=== PATIENT | male | born 1975 | race Caucasian/White ===

== ENCOUNTER 2016-11-16 08:41 | Emergency (ER) | payer OTHER ==
[~2016-11-16] VITALS: Ht 188 cm; Wt 96.3 kg
[~2016-11-16 08:41] MED LIST: IBUP-1050 PO; NTRGSL/4 UT; TYLOTC500 PO; WARF10TA4 PO; WARF7.5T4 PO
[2016-11-16 08:46] VITALS: TEMP 37.1; Ht 188 cm; Wt 96.3 kg
[2016-11-16] MEDS ORDERED: PENICILLIN V POTASSIUM 250 MG TAB PO STA (09:03)
--- NOTE | 2016-11-16 09:05 | EMERGENCY ROOM VISIT NOTE ---
History Report prepared by Davina: Maxine Bryant Under the Supervision of: Dr. Ines Pastor M.D. First contact with patient: 08:50 Chief Complaint: FACIAL PAIN/INJURY Stated Complaint: RT SIDE OF FACE IS SWOLLEN/PAIN FROM SIDE TO HEAD History of Present Illness The patient is a 41 year old male who presents to the Emergency Room with complaints of worsening right sided falcial swelling beginning a few days prior to arrival. The patient states that he is experiencing pain to the right side of his face. He also notes a headache and has pressure to his head when he leans forward. The patient has a history of dental issues and has experienced these symptoms before from dental issues. He notes those typically begin with pain to the tooth or gum. He denies any pain to his teeth. The patient has an appointment scheduled with PCP this evening. The patient denies congestion. He does have seasonal allergies. 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 He denies congestion or dental pain. Review of Systems See HPI for pertinent positives & negatives. A total of 10 systems reviewed and were otherwise negative. Past Medical & Surgical Medical Problems: (1) Aortic valve disorder (2) Bicuspid aortic valve (3) Chest pain (4) Chronic dyspnea (5) H/O cardiac pacemaker (6) Hypercholesterolemia Surgical Problems: (1) S/P AVR (aortic valve replacement) Family History Cancer Diabetes mellitus Heart disease Hypertension Social History Smoking Status: Never Smoker Drug Use: none Marital Status: Housing Status: lives with family Occupation Status: employed Current/Historical Medications Scheduled Acetaminophen (Tylenol), 1,000 MG PO Q8HR PRN Ibuprofen (Advil), 800 MG PO PRN Nitroglycerin (Nitrostat), 0.4 MG UT PRN Penicillin V Potassium (Veetids), 500 MG PO QID Warfarin Sod (Jantoven), 7.5 MG PO 3XWEEK Warfarin Sod (Jantoven), 10 MG PO 4XWEEK Scheduled PRN Hydrocodone/Acetaminophen 5MG/325MG ([place] 5MG/325MG), 1 TABLET PO Q6 PRN for Pain Allergies Coded Allergies: No Known Allergies (Verified , 11/16/16) Physical Exam Vital Signs Date Time Temp Pulse Resp B/P (MAP) Pulse Ox O2 Delivery O2 Flow Rate FiO2 11/16/16 10:11 99 18 135/84 95 11/16/16 08:46 37.1 108 18 134/85 94 Room Air Physical Exam Vital signs reviewed. General: Well-appearing male, in no significant distress. HEENT: No scleral icterus, PERRLA, neck supple. Atraumatic. Swelling to right facial cheek over the infraorbital region and maxillary sinus. Poor dentition noted. 1 cm abscess noted to the buccal surface of the gum line to first molars. Minimal drainage. Cardiovascular: Regular rate and rhythm, no extra sounds. Pulmonary: Clear to auscultation bilaterally, normal work of breathing. Abdomen: Soft, nontender, nondistended, positive bowel sounds. Musculoskeletal: Atraumatic, no peripheral edema. Neurologic: Patient awake alert and oriented x 3, full strength in all 4 extremities. Cranial nerves 2 through 12 grossly intact. Skin: Warm, dry, no rash Medical Decision & Procedures Medications Administered Medications (Trade) Dose Ordered Sig/Jenny Route Start Time Stop Time Status Last Admin Dose Admin Penicillin V Potassium (Veetids Tab) 500 mg NOW STAT PO 11/16/16 09:03 11/16/16 09:05 DC 11/16/16 09:17 500 MG Procedure I ED Course 0859: Past medical records reviewed. The patient was evaluated in room B4. A complete history and physical examination was performed. 0903: Veetids Tab 500 mg PO. 0905: See procedure note for Incision and Drainage of Abscess. 0951: Upon reevaluation, the patient appeared to have improvement of his symptoms. I discussed findings with the patient. He verbalized agreement of the treatment plan. He was discharged home. Medical Decision The patient is a 41 year old male who presents to the ED with complaints of facial swelling. Differentials include dental abscess, fractured tooth, facial cellulitis, sinusitis. Medication Reconciliation: I attest that I have personally reviewed the patient' s current medication list. Blood Pressure Screening: Patient was found to have a slightly elevated blood pressure due to circumstances. I do not believe that the patient requires hypertension monitoring. This patient was evaluated and appeared to be in no significant distress. Patient was medicated with Pen-VK 500 mg. The abscess is visualized along the maxilla in the gumline. A scalpel was used to partially drain the abscess. Patient was given a prescription for Pen-VK 500 mg 4 times a day for 7 days. He was also given a short prescription for [place]. He will follow-up with the dentist as soon as possible. He will return to the ER for worsening of symptoms or any medical concerns. [place] Drug Monitoring [place] Search Results: patient reviewed within database, no issues identified Impression Primary Impression: Dental abscess Scribe Attestation The scribe's documentation has been prepared under my direction and personally reviewed by me in its entirety. I confirm that the note above accurately reflects all work, treatment, procedures, and medical decision making performed by me. Departure Information Dispostion Home / Self-Care Prescriptions Hydrocodone/Acetaminophen 5MG/325MG ([place] 5MG/325MG) Tab 1 TABLET PO Q6 Y for Pain, #20 TAB Prov: Ines Pastor M.D. 11/16/16 Penicillin V Potassium (Veetids) 500 Mg Tab 500 MG PO QID, #40 TAB Prov: Ines Pastor M.D. 11/16/16 Referrals Shelton Birmingham M.D. (PCP) Forms HOME CARE DOCUMENTATION FORM, IMPORTANT VISIT INFORMATION Patient Instructions My [facility] Additional Instructions Diagnosis: Dental abscess Pen VK 500 mg four times daily for 7 days. [place] 1 tab every 6 hours as needed for pain. Do not drive or take tylenol with this medication. Ibuprofen 600 mg every 6 hours as needed for pain with food. Follow up with a dentist GAURI, within the next few days. Try Dr Montelongo, [address], [address], [place]. [phone] Return to the ED for worsening of symptoms or any medical concerns.
[2016-11-16] MEDS ORDERED: PENI-82 PO (09:48)
[2016-11-16] MEDS ORDERED: HYDR-5688 PO (09:48)
[2016-11-16 10:11] VITALS: BP 135/84; PULSE 99; O2SAT 95
== END 2016-11-16 10:12 | disposition home or self-care (01) ==
LOC: C.EDB 08:42
DX: K04.7 Periapical abscess without sinus (principal); Q23.1 Congenital insufficiency of aortic valve; Z95.0 Presence of cardiac pacemaker; E78.00 Pure hypercholesterolemia, unspecified; Z95.2 Presence of prosthetic heart valve; Z80.9 Family history of malignant neoplasm, unspecified; Z83.3 Family history of diabetes mellitus; Z82.49 Family history of ischemic heart disease and other diseases of the circulatory system; Z79.01 Long term (current) use of anticoagulants; Z79.899 Other long term (current) drug therapy

== ENCOUNTER 2016-12-02 12:10 | Day surgery (SDC) | payer OTHER ==
[2016-11-08 10:17] VITALS: BMI 27.0
--- NOTE | 2016-11-08 10:47 | PAT Medication Instructions ---
Service Date Nov 08, 2016. Current Home Medication List Acetaminophen (Tylenol), 1,000 MG PO Q8HR PRN Ibuprofen (Advil), 800 MG PO PRN Nitroglycerin (Nitrostat), 0.4 MG UT PRN Warfarin Sod (Jantoven), 7.5 MG PO 3XWEEK Warfarin Sod (Jantoven), 10 MG PO 4XWEEK Medication Instructions For Your Scheduled Surgery - Check with surgeon for instructions: Ibuprofen (Advil), 800 MG PO PRN - Check surgeon/coumadin clinic for instructions: Warfarin Sod (Jantoven), 7.5 MG PO 3XWEEK Warfarin Sod (Jantoven), 10 MG PO 4XWEEK - Take the following medications the morning of surgery with a sip of water: Nitroglycerin (Nitrostat), 0.4 MG UT PRN (if needed) Acetaminophen (Tylenol), 1,000 MG PO Q8HR PRN (if needed) - Take the following medications as scheduled the night before surgery: Nitroglycerin (Nitrostat), 0.4 MG UT PRN (if needed) Acetaminophen (Tylenol), 1,000 MG PO Q8HR PRN (if needed) If you have any questions please call us at [phone] or [phone] or [phone]
[2016-11-08 11:27] LABS: BASO % 0.3 %; BASO ABS # 0.03 K/uL (0-0.2); COMPLETE YES; EOS % 2.7 %; HEMATOCRIT 47.6 % (42-52); IG% 0.3 %; LYMPH % 24.3 %; LYMPH ABS # 2.19 K/uL (1.2-3.4); MEAN CELL VOLUME 83.8 fL (80-100); MEAN CORPUSCULAR HEMOGLOBIN 30.3 pg (25-34); MEAN CORPUSCULAR HGB CONC 36.1 g/dl (32-36); MEAN PLATELET VOLUME 10.7 fL (7.4-10.4); MONO % 8.9 %; NEUT % 63.5 %; PLATELET COUNT 292 K/uL (130-400); RED BLOOD COUNT 5.68 M/uL (4.7-6.1); WHITE BLOOD COUNT 9.02 K/uL (4.8-10.8)
[2016-11-08 11:38] LABS: URINE APPEARANCE CLEAR (CLEAR); URINE BILIRUBIN NEG (NEG); URINE COLOR YELLOW; URINE NITRITE NEG (NEG); URINE PH 6.5 (4.5-7.5); URINE SPECIFIC GRAVITY 1.022 (1.000-1.030); UROBILINOGEN NEG (NEG)
--- NOTE | 2016-11-08 11:44 | DIAGNOSTIC IMAGING REPORT ---
CHEST PREADMISSION(PA/LAT) CLINICAL HISTORY: 41 years-old Male presenting with preadmission chest x-ray. TECHNIQUE: PA and lateral views of the chest were obtained. COMPARISON: 02/08/2013. FINDINGS: Left-sided pacer with leads to the right atrium and right ventricular apex. Prosthetic aortic valve and mediastinal surgical clips noted. Evidence of breakage of one of the upper sternotomy wires, which may have been present on prior in retrospect. Heart and mediastinal silhouette normal. Lungs and pleural spaces clear. Osseous structures and upper abdomen normal. IMPRESSION: 1. No acute cardiopulmonary disease. Electronically signed by: Shelton Dunn 11/08/2016 11:43 AM Dictated Date/Time: 11/08/2016 11:41 AM
[2016-11-08 11:49] LABS: MANUAL MICROSCOPIC REQUIRED? NO; REVIEW REQ? NO
[2016-11-08 12:43] LABS: BUN/CREATININE RATIO 7.1 (10-20); CALCIUM 9.4 mg/dl (8.5-10.1); CREATININE 0.86 mg/dl (0.60-1.40); POTASSIUM 3.9 mmol/L (3.5-5.1)
--- NOTE | 2016-11-29 23:04 | HISTORY & PHYSICAL EXAMINATION ---
DATE OF ADMISSION: 12/02/2016 CHIEF COMPLAINT: Right hip pain. HISTORY OF PRESENT ILLNESS: The patient is a 41-year-old male, who presents to the office with right hip pain. He states that the symptoms have been chronic and nontraumatic. He states that the symptoms have been getting progressively worse over time. He describes the pain as moderate to severe. He has been treated with cortisone injections to the right intraarticular hip for some time. These injections have stopped working for him. He would like to proceed with a left hip scope with a possible labral repair. PAST MEDICAL HISTORY: Significant for aortic valve disease, irregular heartbeat. PAST SURGICAL HISTORY: Aortic valve replacement with mechanical valve, pacemaker, tonsillectomy, appendectomy, adenoidectomy. SOCIAL HISTORY: He denies alcohol use. He smokes a cigar occasionally. He denies IV or illegal drug use. He lives in a 1-story house. He currently works at [employer]. FAMILY HISTORY: His grandfather had a heart attack. REVIEW OF SYSTEMS: He denies headaches, fevers, chills, double vision, blurry vision, sore throat, cough, chest pain, nausea, vomiting, diarrhea, constipation, numbness or tingling, tiring, urinary difficulties, thoughts to harm himself or harm others or depression. He is positive for joint pain and joint stiffness of the left hip. ALLERGIES: No known drug allergies. MEDICATIONS: Warfarin, Tuesday, Tuesday, Tuesday, Tuesday, 10 mg, Tuesday, , Tuesday, 7.5 mg, Nitro when needed, aspirin 81 mg when needed. OBJECTIVE: GENERAL APPEARANCE: The patient is a 41-year-old male, who is sitting, in no acute distress. He is well dressed, well nourished. He is awake, alert and oriented x3. VITAL SIGNS: He is 6 feet 2 inches tall, 213 pounds, blood pressure 142/80. HEENT: Normocephalic, atraumatic. Extraocular movements are intact. PERRLA. Mucosa was moist. No septal deviation. NECK: Supple with no lymphadenopathy, no JVD, no thyromegaly. HEART: Regular rate and rhythm. Mechanical valve is noted. LUNGS: Clear to auscultation with no wheezing or rhonchi. ABDOMEN: Soft, nontender, nondistended. Normal bowel sounds. No hepatosplenomegaly. EXTREMITIES: Paying particular attention to the left hip, he has difficulty with active hip flexion, abduction and external rotation. He has decreased strength in all planes of movement. NEUROLOGIC: Cranial nerves II-XII were intact. Pulses were compared bilaterally and were equal. IMAGING: CT arthrogram of the hip demonstrated posterior labral fraying. IMPRESSION: Left hip pain with possible labral tear. PLAN: The patient is scheduled for a left hip scope and possible labral repair. The patient has failed intraarticular injections. He was unable to obtain an MRI due to a pacemaker as well as the prosthetic valve. A CT arthrogram was obtained, of the hip, which demonstrates some posterior labral fraying. He has failed the conservative measures of cortisone injections and physical therapy. He would like to proceed with an arthroscopy. He will be scheduled for a left hip scope and possible labral repair. Risks and benefits were discussed that included, but not limited to, infection, DVT, pain, stiffness, need for revision surgeries, failure to relieve all symptoms, re-tear, damage to blood vessels, damage to nerves, and risks of anesthesia were all discussed with the patient and he wishes to proceed. All questions were answered to his satisfaction. He will be sent home with self-care. 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 [place]
[~2016-12-02] VITALS: Ht 188 cm; Wt 96.9 kg
[~2016-12-02 12:10] MED LIST changes: +ATROPINE SULFATE 0.1 MG/ML 5ML SYR IV PRN; +BUPIVACAINE 0.5 % 5 MG/1 ML PF 10ML VIAL ONE; +DEXAMETHASONE SOD INJ 4 MG/ML VIAL ONE; +EpHEDrine SULFATE INJ 50 MG/ML AMP IV PRN; +FENTANYL CITRATE INJ 50 MCG/1 ML 2 ML VIAL ONE; +HYDR-5688 PO; +LACTATED RINGER'S 1000ML 1,000 ML IV SCH; +LACTATED RINGER'S 1000ML 500 ML IV ONE; +LIDOCAINE HCL 2% 2 ML VIAL (20MG/ML) ONE; +MIDAZOLAM HCL 1 MG/ML 2ML VIAL ONE; +ONDANSETRON INJ 2 MG/ML 2 ML VIAL IV PRN; +ONDANSETRON INJ 2 MG/ML 2 ML VIAL ONE; +PENI-82 PO; +PROPOFOL IV EMULSION 10 MG/ML 20 ML VIAL IV ONE
--- NOTE | 2016-12-02 12:28 | History & Physical Bridge Note ---
H&P Re-Evaluation Bridge Note: I have examined the patient, reviewed the History & Physical and in the interval since the performance of the History & Physical I have noted the following changes of clinical significance: No changes noted
[2016-12-02] MEDS ORDERED: lovenox (12:31)
[2016-12-02 12:32] VITALS: BP 130/87; PULSE 78; TEMP 37; O2SAT 95; Ht 188 cm; Wt 96.9 kg
[2016-12-02 13:04] LABS: PARTIAL THROMBOPLASTIN RATIO 1.1; PROTHROMBIN TIME (PATIENT) 11.2 SECONDS (9.0-12.0)
--- NOTE | 2016-12-02 13:25 | History & Physical Bridge Note ---
H&P Re-Evaluation Bridge Note: I have examined the patient, reviewed the History & Physical and in the interval since the performance of the History & Physical I have noted the following changes of clinical significance: The patient has left hip pain, NOT right hip pain as stated in the Chief complaint and HPI of the history and physical.
[2016-12-02] MEDS ORDERED: NURSING VERBAL MED ORDER ONE (13:30)
[2016-12-02] MEDS ORDERED: CEFAZOLIN 2000 MG/60 ML D5W IV ONE (13:45)
[2016-12-02] MEDS ORDERED: LIDOCAINE/EPINEPHRINE 1% 20 ML VIAL ONE (14:05)
--- NOTE | 2016-12-02 14:05 | History & Physical Bridge Note ---
H&P Re-Evaluation Bridge Note: I have examined the patient, reviewed the History & Physical and in the interval since the performance of the History & Physical I have noted the following changes of clinical significance: The chief complaint is LEFT hip pain. The plan will be LEFT hip arthrocopy with possible labral repair
[2016-12-02] MEDS ORDERED: EpINEphrine HCL INJ 1 MG/ML 5ML SYRINGE ONE (14:06)
[2016-12-02] MEDS ORDERED: BUPIVACAINE 0.5 % 5 MG/1 ML MPF 30ML VIAL ONE (14:06)
[2016-12-02] MEDS ORDERED: KETAMINE HCL INJ 50 MG/ML 10 ML VIAL ONE (14:56)
[2016-12-02] MEDS ORDERED: FENTANYL CITRATE INJ 50 MCG/1 ML 2 ML VIAL ONE (15:14)
[2016-12-02] MEDS ORDERED: PROPOFOL IV EMULSION 10 MG/ML 20 ML VIAL IV ONE (15:40)
[2016-12-02] MEDS ORDERED: D5W AND 1/2NSS + 20MEQ KCL 1,000 ML IV SCH (16:11)
--- NOTE | 2016-12-02 16:11 | DIAGNOSTIC IMAGING REPORT ---
INTRAOPERATIVE LEFT HIP SINGLE VIEW CLINICAL HISTORY: LEFT HIP ARTHROPLASTY, POSSIBLE LABRAL REPAIR COMPARISON STUDY: None FLUOROSCOPY TIME: 23 seconds. NUMBER OF FLUOROSCOPIC IMAGES: 1 FINDINGS: A single intraoperative fluoroscopic spot images provided for interpretation. This reveals an arthroscope projected over the superior aspect of the left femoral head. IMPRESSION: Intraoperative fluoroscopic spot image of the left hip. Electronically signed by: Abram Lamb M.D. 12/02/2016 4:10 PM Dictated Date/Time: 12/02/2016 4:08 PM
[2016-12-02] MEDS ORDERED: ACETAMINOPHEN 325 MG TAB PO PRN (16:15)
[2016-12-02] MEDS ORDERED: OXYCODONE/ACETAMINOPHEN 5-325 TAB PO PRN ×2 (16:15)
[2016-12-02] MEDS ORDERED: ONDANSETRON INJ 2 MG/ML 2 ML VIAL IV PRN (16:15)
[2016-12-02] MEDS ORDERED: LVNIS30 SQ (16:29)
[2016-12-02] MEDS ORDERED: OXYC-57 PO (16:29)
[2016-12-02] MEDS: FENTANYL CITRATE INJ 50 MCG/1 ML 2 ML VIAL IV PRN ×2 (16:30→16:35)
--- NOTE | 2016-12-02 16:36 | Anesthesiology Progress Note ---
Anesthesia Post Op Note Date & Time Dec 02, 2016 at 16:36 Vital Signs Pain Intensity: 6.0 Vital Signs Past 12 Hours Date Time Temp Pulse Resp B/P (MAP) Pulse Ox O2 Delivery O2 Flow Rate FiO2 12/02/16 16:28 85 15 12/02/16 16:28 85 15 99 12/02/16 16:25 133/87 12/02/16 16:23 100 17 12/02/16 16:23 102 17 98 12/02/16 16:20 137/85 12/02/16 16:18 82 12 97 12/02/16 16:18 82 12 12/02/16 16:15 123/80 12/02/16 16:13 37.0 83 12 123/80 96 Mask 10 12/02/16 16:13 80 12 12/02/16 16:13 79 12 123/80 96 12/02/16 12:32 37 78 20 130/87 (101) 95 Room Air Notes Mental Status: alert / awake / arousable, participated in evaluation Pt Amnestic to Procedure: Yes Nausea / Vomiting: adequately controlled Pain: adequately controlled Airway Patency, RR, SpO2: stable & adequate BP & HR: stable & adequate Hydration State: stable & adequate Anesthetic Complications: no major complications apparent
--- NOTE | 2016-12-02 16:40 | Discharge Instructions ---
Discharge Instructions Date of Service Dec 02, 2016. Admission Reason for Admission: Pain In Left Hip Discharge Discharge Diagnosis / Problem: Left Hip arthroscopy debridement, microfracture of acetabulum Discharge Goals Goal(s): Decrease discomfort, Improve function Activity Recommendations Activity Limitations: per Instructions/Follow-up section . Instructions / Follow-Up Instructions / Follow-Up HIP ARTHROSCOPY DISCHARGE INSTRUCTIONS Patient to is to be Non-Weightbearing of the left lower extremity for 6 weeks. Use crutches to ambulate with no weight on the operative leg. He is allowed to remove the dressing two days after the operation. He can then apply dry dressings daily. DVT prophylaxis will be Lovenox 100mg Daily for 3 days. You will continue your warfarin as prescribed as well. Follow up with your day treatment clinician/art therapist and repeat your INR as scheduled. If you have any questions about transitioning from Lovenox to Warfarin please call your Infrastructure Architect, Dr. Paz. Pain medication will be provided for you. You can get this prescription filled. You can also take Tylenol as needed for pain. Keep a close look at the incisions. If there is increased redness, drainage, you begin to run a temperature greater than 101.5 or your pain worsens, please [facility] at [phone] Make a follow up appointment with Dr. Guthrie or his PA 10-14 Days after surgery for suture removal. Current Hospital Diet Patient's current hospital diet: Regular Diet Discharge Diet Recommended Diet: Regular Diet Procedures Procedures Performed: Left Hip Arthroscopy, Debridement Of labral, Microfracture of Acetabulum. Pending Studies Studies pending at discharge: no Medical Emergencies . Who to Call and When: Medical Emergencies: If at any time you feel your situation is an emergency, please call 911 immediately. . Non-Emergent Contact Non-Emergency issues call your: Surgeon Call Non-Emergent contact if: temperature is above 101.5, your pain is worsening, wound has increased drainage, wound has increased redness . "Provider Documentation" section prepared by Deon Karimi. . VTE Core Measure Inpt VTE Proph given/why not?: Enoxaparin (Lovenox)SQ, Warfarin (Coumadin) [place] Drug Monitoring [place] Search Results: patient reviewed within database, no issues identified
--- NOTE | 2016-12-02 17:03 | [facility] Operative Report ---
Operative Report Operative Date Dec 02, 2016. Pre-Operative Diagnosis Left hip pain with possible labral tear Post-Operative Diagnosis Left hip labral tear plus chondral lesion acetabulum Procedure(s) Performed Left Hip Arthroscopy, Debridement Of labral, Microfracture of Acetabulum. Surgeon Dr. Shelton Guthrie Editor In Chief Surgeon(s) Jourdan Karimi PA-C Estimated Blood Loss 2 ml Findings Above Specimens none per surgeon Drains none Anesthesia Gen. Complication(s) None Disposition Recovery Room / PACU Indications 41-year-old male with long-standing pain in the left hip. He is failed conservative measures including intra-articular injection anti-inflammatories and physical therapy. We are unable to obtain an MRI secondary to pacemaker placement but his exam and CT arthrogram concerning for labral tear. He wishes to proceed with left hip arthroscopy. Description of Procedure The patient has failed conservative measures including cortisone injection, physical therapy, and anti-inflammatory medication. After failing conservative measures, the patient wished to proceed with arthroscopy. The risks, benefits, and alternatives of surgery including, but not limited to, infection, DVT, pain , stiffness, need for revision surgery, failure to relieve all symptoms, damage to blood vessels, damage to nerves, and risk of anesthesia were discussed with the patient and they wished to proceed. The patient was identified. Laterality was confirmed and marked. The patient received a preoperative antibiotic. They were transferred to the operating room placed in the supine position and induced into general endotracheal anesthesia per the anesthesia staff. The patient was then safely transferred to the [place] and Neph hip arthroscopy traction system. The feet were well- padded with boots. A well-padded perineal post was placed. We placed some mild counter traction to the contralateral limb. Then under fluoroscopic guidance we ensure that we are able to achieve appropriate distraction of the femoral acetabular joint of the operative hip. The traction was then released. The limb was then prepped and draped in the usual standard manner with ChloraPrep. Once the hip was prepped and draped and placed it back on traction. Then utilizing fluoroscopy guidance, I made a anterior lateral portal through a stab incision. Incision sites were anesthetized with 2% lidocaine with epinephrine. Then under fluoroscopic guidance as well as direct visualization I made a more direct anterior portal taking care to only incise through the skin and then dissected bluntly deep. I then switched viewing portals to ensure that the anterior labral portal was not through the labrum. The cartilage of the femoral head [was normal]. The cartilage of the acetabulum had a region anteriorly laterally with the cartilage was unstable and delaminating off of the bone. The ligamentum teres [was normal]. The acetabular labrum [demonstrated a anterior superior tear that was not displaceable off of the acetabulum upon probing]. The unstable fragments were debrided using a combination of straight and curved jamie however the labrum itself was still stable and not requiring a repair. I utilized a [place] blade to perform a capsulotomy connecting the anterior and anterior lateral portals. I used a TurboVac ablator to achieve hemostasis. I used a combination of meniscus biter as well as ring curet to debride the unstable cartilage. The underlying bone had some minor cystic changes and was not normal. Bone. This was debrided with the curette to establish a good bleeding response. I then used a 90 microfracture pick to establish a good bleeding response. A spinal needle was placed into the hip and then 20 cc of Marcaine was placed after incision closure. All instrumentation was then removed from the hip. The portal sites were closed with nylon in the region. A sterile dressing was applied. All needle and sponge counts were correct at the end of the procedure. The patient was transferred to the PACU in stable condition without apparent complication. He will be on crutches for 6 weeks given his microfracture. I attest to the content of the Intraoperative Record and any orders documented therein. Any exceptions are noted below.
[2016-12-02 17:05] VITALS: BP 125/78; PULSE 93; TEMP 36.5; O2SAT 91
[2016-12-02 18:05] VITALS: BP 118/79; PULSE 96; TEMP 36.6; O2SAT 96
[2016-12-02 18:50] VITALS: BP 122/78; PULSE 90; TEMP 36.8; O2SAT 97
== END 2016-12-02 19:03 | disposition home or self-care (01) ==
LOC: C.ACU 12:10
PROVIDERS: ATTEND Orthopaedic Surgery
DX: S73.102A Unspecified sprain of left hip, initial encounter (principal); X58.XXXA Exposure to other specified factors, initial encounter; F17.290 Nicotine dependence, other tobacco product, uncomplicated; Z95.2 Presence of prosthetic heart valve; Z95.0 Presence of cardiac pacemaker; Z90.49 Acquired absence of other specified parts of digestive tract; Z79.01 Long term (current) use of anticoagulants; Z79.82 Long term (current) use of aspirin; Z82.49 Family history of ischemic heart disease and other diseases of the circulatory system

== ENCOUNTER 2017-07-11 23:25 | Emergency (ER) | payer OTHER ==
[~2017-07-11] VITALS: Ht 188 cm; Wt 94.1 kg
[~2017-07-11 23:25] MED LIST changes: -ATROPINE SULFATE 0.1 MG/ML 5ML SYR IV PRN; -BUPIVACAINE 0.5 % 5 MG/1 ML PF 10ML VIAL ONE; -DEXAMETHASONE SOD INJ 4 MG/ML VIAL ONE; -EpHEDrine SULFATE INJ 50 MG/ML AMP IV PRN; -FENTANYL CITRATE INJ 50 MCG/1 ML 2 ML VIAL ONE; -HYDR-5688 PO; -IBUP-1050 PO; -LACTATED RINGER'S 1000ML 1,000 ML IV SCH; -LACTATED RINGER'S 1000ML 500 ML IV ONE; -LIDOCAINE HCL 2% 2 ML VIAL (20MG/ML) ONE; +LVNIS30 SQ; -MIDAZOLAM HCL 1 MG/ML 2ML VIAL ONE; -ONDANSETRON INJ 2 MG/ML 2 ML VIAL IV PRN; -ONDANSETRON INJ 2 MG/ML 2 ML VIAL ONE; -PENI-82 PO; -PROPOFOL IV EMULSION 10 MG/ML 20 ML VIAL IV ONE
[2017-07-11 23:29] VITALS: TEMP 36.3; Ht 188 cm; Wt 94.1 kg
[2017-07-11] MEDS ORDERED: ACETAMINOPHEN 500 MG TAB PO STA (23:43)
--- NOTE | 2017-07-11 23:44 | EMERGENCY ROOM VISIT NOTE ---
History Report prepared by Davina: [place] Under the Supervision of: Dr. Ariadne Haddad D.O. First contact with patient: 23:33 Chief Complaint: ELBOW PAIN/INJURY Stated Complaint: RIGHT ELBOW SMASHED IT AGAINST WALL History of Present Illness The patient is a 41 year old male who presents to the Emergency Room with complaints of sudden right elbow pain occurring 15 minutes prior to arrival. He rates his pain at a 7/10. The patient states that he was playing around and accidentally smashed his right elbow into a wall. He states that his right arm is now stiff and that he is having tingling in his fingers. The patient reports that he did not take anything for the pain. He denies having shoulder pain. The patient states that he is on Warfarin for an aortic valve replacement and that he has a pacemaker. He reports that his last INR was checked a month ago and that it was fine. Source of History: patient Onset: 15 minutes prior to arrival Position: elbow (right) Symptom Intensity: rated at a 7/10 Timing: other (sudden ) Note: denies: shoulder pain Review of Systems See HPI for pertinent positives & negatives. A total of 10 systems reviewed and were otherwise negative. Past Medical & Surgical Medical Problems: (1) Aortic valve disorder (2) Bicuspid aortic valve (3) Chest pain (4) Chronic dyspnea (5) H/O cardiac pacemaker (6) Hypercholesterolemia (7) Pacemaker Surgical Problems: (1) S/P AVR (aortic valve replacement) Family History Cancer Diabetes mellitus Heart disease Hypertension Social History Smoking Status: Never Smoker Drug Use: none Marital Status: Housing Status: lives with family Occupation Status: employed Current/Historical Medications Scheduled Warfarin Sod (Jantoven), 7.5 MG PO 3XWEEK Warfarin Sod (Jantoven), 10 MG PO 4XWEEK Scheduled PRN Acetaminophen (Tylenol), 1,000 MG PO Q8 PRN for Pain or Fever Nitroglycerin (Nitrostat), 0.4 MG UT UD PRN for Chest Pain Allergies Coded Allergies: No Known Allergies (Verified , 07/12/17) Physical Exam Vital Signs Date Time Temp Pulse Resp B/P (MAP) Pulse Ox O2 Delivery O2 Flow Rate FiO2 07/12/17 01:20 80 20 120/77 94 07/11/17 23:29 36.3 87 18 137/86 98 Room Air Physical Exam Right upper extremity: Patient has some erythema to the lateral aspect of the right elbow. There is pain with palpation in that area. Patient has limited range of motion secondary to pain. There is no obvious joint effusion. normal radial pulses and normal distal sensation. Medical Decision & Procedures ER Provider Diagnostic Interpretation: Radiology results as stated below per my review. ELBOW MIN 3 VIEWS No obvious fracture. No significant joint effusion. No sail sign. Medications Administered Medications (Trade) Dose Ordered Sig/Jenny Route Start Time Stop Time Status Last Admin Dose Admin Acetaminophen (Tylenol Tab) 1,000 mg NOW STAT PO 07/11/17 23:43 07/11/17 23:45 DC 07/11/17 23:48 1,000 MG Procedure Medications: Acetaminophen 1,000 mg PO ED Course 2334: Past medical records reviewed. The patient was evaluated in room B6. A complete history and physical exam was performed. 2343: Ordered Acetaminophen 1,000 mg PO. The patient went for plain x-ray of the right elbow. No fractures were identified. 0055: Upon reevaluation, the patient is resting. I discussed findings and results with him. He verbalized agreement of the treatment plan. He was discharged home. Medical Decision The patient is a 41 year old male who presents to the ED with elbow pain. Differential diagnosis includes fracture, contusion, and sprain. The patient struck his right elbow on a wall. Since that time, he has had pain in the elbow and decreased range of motion. X-rays were performed and were negative for fracture. After I reviewed the results of the x-ray with the patient, he seemed to have full range of motion without difficulty. Medication Reconcilliation Current Medication List: was personally reviewed by me Blood Pressure Screening Patient's blood pressure: Normal blood pressure Impression Primary Impression: Elbow contusion Scribe Attestation The scribe's documentation has been prepared under my direction and personally reviewed by me in its entirety. I confirm that the note above accurately reflects all work, treatment, procedures, and medical decision making performed by me. Departure Information Dispostion Home / Self-Care Referrals Shelton Birmingham M.D. (PCP) Forms HOME CARE DOCUMENTATION FORM, IMPORTANT VISIT INFORMATION Patient Instructions Contusion Bone [facility], [facility] Additional Instructions Rest. Apply ice to the elbow. Use tylenol for pain. Problem Qualifiers Primary Impression: Elbow contusion Encounter type: initial encounter Laterality: right Qualified Codes: S50.01XA - Contusion of right elbow, initial encounter
[2017-07-12 01:20] VITALS: BP 120/77; PULSE 80; O2SAT 94
--- NOTE | 2017-07-12 06:33 | DIAGNOSTIC IMAGING REPORT ---
R ELBOW MIN 3 VIEWS ROUTINE HISTORY: 41 years-old Male eval for right elbow pain acute right elbow pain status post trauma COMPARISON: None available TECHNIQUE: 3 views of the right elbow FINDINGS: There is no acute fracture, dislocation or significant degenerative changes identified. No large joint effusion or opaque foreign body. IMPRESSION: No acute bony abnormality. The above report was generated using voice recognition software. It may contain grammatical, syntax or spelling errors. Electronically signed by: Remberto Dumont M.D. 07/12/2017 6:32 AM Dictated Date/Time: 07/12/2017 6:31 AM
== END 2017-07-12 01:22 | disposition home or self-care (01) ==
LOC: C.EDB 23:26
DX: S50.01XA Contusion of right elbow, initial encounter (principal); W22.01XA Walked into wall, initial encounter; R06.00 Dyspnea, unspecified; Z79.01 Long term (current) use of anticoagulants; Z95.0 Presence of cardiac pacemaker; Z95.2 Presence of prosthetic heart valve; Z86.39 Personal history of other endocrine, nutritional and metabolic disease; Z86.79 Personal history of other diseases of the circulatory system; Z83.3 Family history of diabetes mellitus; Z82.49 Family history of ischemic heart disease and other diseases of the circulatory system

== ENCOUNTER 2023-07-09 15:53 | Observation (INO) ==
[2023-07-09 16:19] LABS: Basophils # (auto) 0.05 K/uL (0.00-0.20); Basophils % (auto) 0.5 %; Eosinophils # (auto) 0.39 K/uL (0.00-0.50); Hematocrit (blood only) 47.3 % (42.0-52.0); Hemoglobin 16.3 g/dl (14.0-18.0); Immature Granulocytes # (auto) 0.03 K/uL (0.01-0.20); Immature Granulocytes % (auto) 0.3 %; Lymphocytes # (auto) 2.73 K/uL (1.20-3.40); Lymphocytes % (auto) 27.7 %; Mean Corpuscular Hemoglobin 29.1 pg (25.0-34.0); Mean Corpuscular Hgb Conc 34.5 g/dL (32.0-36.0); Mean Corpuscular Volume 84.5 fL (80.0-100.0); Monocytes # (auto) 0.79 K/uL (0.11-0.59); Neutrophils # (auto) 5.87 K/uL (1.40-6.50); Neutrophils % (auto) 59.5 %; Platelet Count 310 K/uL (130-400); RDW Coefficient of Variation 13.6 % (11.5-14.5); RDW Standard Deviation 42.4 fL (36.4-46.3); White Blood Count 9.86 K/ul (4.8-10.8)
[2023-07-09 16:37] LABS: Albumin Globulin Ratio 1.7 (0.9-2); Albumin Level 4.7 gm/dl (3.4-5.0); BUN Creatinine Ratio 11.8 (10-20); Bilirubin,Total 0.5 mg/dl (0.2-1.0); Calcium 9.2 mg/dl (8.6-10.3); Creatinine Clr Calc Pharmacy 133.2 ml/min; Est GFR (African American) 118.6 ml/min; Est GFR (Non-African American) 102.3 ml/min; Globulin 2.7 gm/dl (2.5-4.0); Potassium 3.6 mmol/L (3.5-5.1); Total Protein 7.4 gm/dl (6.0-8.3)
[2023-07-09 16:44] LABS: Troponin I High Sensitivity 6.5 pg/ml (0-20)
[2023-07-09] MEDS: ASPIRIN CHEW 324 MG PO STA (16:46)
[2023-07-09] MEDS: NITROGLYCERIN SL 0.4 MG/TAB TAB SL STA ×2 (16:46→18:33)
[2023-07-09] MEDS: SODIUM CHLORIDE 0.9% 1,000 ML IV ONE (16:47)
[2023-07-09 16:48] LABS: Partial Thromboplastin Ratio 1.3; Partial Thromboplastin Time 38 Seconds (21-31); Prothrombin Time 21.3 Seconds (9.0-12.0)
--- NOTE | 2023-07-09 17:20 | XRay Report ---
XR chest 1V not portable CLINICAL HISTORY: Chest pain, nonspecific TECHNIQUE: Single frontal radiograph of the chest was obtained. Comparison: Comparison is made to chest radiograph 01/30/2019 FINDINGS: Median sternotomy wires are unchanged. Implanted pacemaker is seen. The cardiomediastinal silhouette is normal. The lungs are clear. No evidence of pleural effusion or pneumothorax. IMPRESSION: No acute chest disease. ACT 112: Negative or not required by law. Electronically signed by: Fer Atkinson M.D. 07/09/2023 5:19 PM
[2023-07-09] MEDS: FAMOTIDINE 20MG IV PUSH 20 MG/5 ML SYR IV STA (19:47)
[2023-07-09] MEDS: ALUMINUM/MAGNESIUM SUSP 30 ML UDC PO STA (19:47)
[2023-07-09] MEDS ORDERED: ACETAMINOPHEN 325 MG TAB PO PRN (20:22)
--- NOTE | 2023-07-09 20:22 | History & Physical Report ---
Date of Service July 09, 2023 Assessment & Plan (1) Chest pain: Plan: Admit to telemetry Patient presenting from home with reports of left-sided chest pain In the ED, patient received 1 sublingual nitroglycerin with minimal improvement in the pain and EKG without acute ST changes, HS troponin negative x 2 Will trial GI cocktail and Famotidine Trend trop, resting echo Cardio consult, patient known to [facility] Cardiology (2) S/P AVR (aortic valve replacement): Plan: On Coumadin, INR 2.0 Continue Coumadin, monitor INR daily (3) H/O cardiac pacemaker: Plan: No acute issues S/p generator exchange 2022 DVT PROPHYLAXIS On Coumadin with therapeutic INR Patient seen collaboration with Dr. Burns. I spent a total of 75 minutes coordinating, documenting, and providing care for this patient excluding time spent in the performance of separately billed services. This included personally reviewing all current laboratories and imaging studies, medication reconciliation, outpatient chart review, and discussion with specialists. History of Present Illness Chief Complaint: Chest pain Primary Care Provider: Shelton Birmingham MD 47-year-old male with PMH mechanical aortic valve replacement anticoagulated on Coumadin, history of complete heart block s/p pacemaker, anxiety, and other problems listed below who presents to the ED for evaluation of chest pain. History is obtained from the patient and review of outpatient PCP and cardiology records. Patient reports that around 11:00, while he was at work, he developed a left-sided chest pressure. Patient reports he was not exerting himself at the time. Pain has been fairly constant since that time. No specific causative or alleviating factors. Patient denies associated diaphoresis, shortness of breath, nausea, lightheadedness. Reports feeling fatigued today. No other recent illnesses, fevers, chills. He denies abdominal pain, vomiting, diarrhea. No urinary symptoms. In the ED, patient received 1 sublingual nitroglycerin with some improvement in the pain however is currently rating his pain #8/10. EKG is without acute ST changes and initial HS troponin is negative. Allergies Allergy/AdvReac Type Severity Reaction Status Date / Time No Known Allergies Allergy Verified 07/09/23 17:50 Home Medications Medication Instructions Recorded Confirmed Type escitalopram oxalate 20 mg tablet 20 mg PO HS 07/09/23 07/09/23 History warfarin 5 mg tablet See Rx Instructions .Route .COMPLEX 07/09/23 07/09/23 History Past Med/Surg History Medical History Mobitz type 2 second degree AV block Anticoagulant long-term use Aortic valve disease s/p AVR (2005) Temporomandibular joint disorder + clicking, no locking Hip pain H/O cardiac pacemaker Implanted 2012, Generator change-out 01/13/23. Surgical History History of hip surgery Left bone/cartilage repair History of appendectomy History of tonsillectomy S/P AVR (aortic valve replacement) 2005 Pacemaker 2012 Family History Grandfather Myocardial infarction Father Diabetes Grandmother (Paternal) Diabetes Social History Smoking Status: Never smoker Second Hand Exposure: Yes (PARENTS SMOKED); Hx Alcohol Use: No Hx Substance Use: No Preferred Language: Turkmen Communication Ability: Effective Recreation Worker Required: No Beliefs That Will Affect Care: None Current Living Situation: Spouse and Family Current Living Situation Comment: SPOUSE, 2 KIDS current occupational status: employed 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 Other Information That Helps Us Care for You: No Feels Safe at Home: Yes Safety Concerns: Feels Safe At This Time Assistive Devices: Glasses Physical Exam Constitutional: WD/WN, vitals as above no acute distress Eyes: PERRL, conjunctivae normal, anicteric sclerae ENMT: external ear and nose normal, oropharynx normal Respiratory: normal respiratory effort, lungs clear to auscultation Cardiovascular: Rate/Rhythm: regular rate and regular rhythm Vessels: normal peripheral pulses Extremities: no edema Gastrointestinal (Abdomen): normal bowel sounds, soft, nontender, no hepatosplenomegaly Musculoskeletal: no cyanosis or clubbing, extremities motor strength 5/5 Skin: no rashes, warm and dry Neurologic: PERRL, EOMI, accommodation nl, no face palsy, no dysarthria Psychiatric: A+Ox3, euthymic affect Results & Data Results & Data Vital Signs (Past 12 Hours) Vital Signs Temp Pulse Pulse Resp BP BP Pulse Ox 07/09/23 19:40 65 17 114/77 95 07/09/23 19:33 65 18 111/75 95 07/09/23 16:50 72 07/09/23 16:43 70 18 07/09/23 16:43 71 18 129/79 96 07/09/23 16:43 96 07/09/23 15:58 36.2 C L 77 20 158/92 H 96 O2 Del Method O2 Flow Rate 07/09/23 19:40 Room Air 07/09/23 19:33 Room Air 07/09/23 16:50 07/09/23 16:43 0 07/09/23 16:43 Room Air 07/09/23 16:43 Room Air 0 07/09/23 15:58 Room Air Laboratory Results Short CBC 07/09/23 Range/Units 16:05 WBC 9.86 (4.8-10.8) K/ul Hgb 16.3 (14.0-18.0) g/dl Hct 47.3 (42.0-52.0) % Plt Count 310 (130-400) K/uL BMP 07/09/23 16:05 Sodium 138 Potassium 3.6 Chloride 105 Carbon Dioxide 26 BUN 10 Creatinine 0.85 Glucose 95 Calcium 9.2 Liver Function 07/09/23 Range/Units 16:05 Total Bilirubin 0.5 (0.2-1.0) mg/dl AST 19 (13-39) U/L ALT 18 (7-52) U/L Alkaline Phosphatase 57 (34-104) U/L Albumin 4.7 (3.4-5.0) gm/dl Diagnostic Findings Chest X-Ray 07/09/23 16:01 XR chest 1V not portable CLINICAL HISTORY: Chest pain, nonspecific TECHNIQUE: Single frontal radiograph of the chest was obtained. Comparison: Comparison is made to chest radiograph 01/30/2019 FINDINGS: Median sternotomy wires are unchanged. Implanted pacemaker is seen. The cardiomediastinal silhouette is normal. The lungs are clear. No evidence of pleural effusion or pneumothorax. IMPRESSION: No acute chest disease. ACT 112: Negative or not required by law. Electronically signed by: Fer Atkinson M.D. 07/09/2023 5:19 PM Supervising Physician Co-Signing Physician Notes I have seen and examined the patient and have discussed the case with the provider above. I have reviewed the advanced practitioner's documentation, and I agree with, and take responsibility for that plan of care. Patient is a 47-year-old man presenting with chest discomfort described as a pressure and left anterior chest . He has a significant cardiac history including aortic valve replacement with mechanical valve currently anticoagulated on Coumadin with a therapeutic INR, history of complete heart block status post pacemaker. He has an EKG this evening that reflects sinus rhythm with no ST changes that indicate acute ischemia and troponin x 2 is negative. Pain is not improved with 2 doses of nitroglycerin and full dose aspirin. No clear history of heartburn but patient does drink 2 Mountain Dew's daily with coffee. Added Maalox and Pepcid to see if this improved his discomfort. Agree with trending cardiac enzymes overnight and consulting cardiology in the morning. Patient does report intermittent lightheadedness which she states he has not discussed with cardiology and was encouraged to do so given his significant cardiac history noted above. Patient denies any syncopal episodes. Workup is otherwise unrevealing. PE considered but felt less likely given therapeutic INR in setting of consistent warfarin use. Continue monitoring patient overnight with likely plan for discharge tomorrow unless additional investigation warranted per cardiology. DO Grant
[2023-07-09] MEDS: ESCITALOPRAM OXALATE 20 MG TAB PO SCH (22:09)
[2023-07-09] MEDS: WARFARIN SOD 7.5 MG TAB PO SCH (22:09)
--- NOTE | 2023-07-09 22:10 | Emergency Department Note ---
History of Present Illness General Chief Complaint: Chest Pain Stated Complaint: CHEST PRESSURE Time Seen by Provider: 07/09/23 16:30 History of Present Illness Provider Complaint: chest pain Time: 11:00 Duration: constant Onset: during rest Pain Location: substernal and left chest Pain Radiation: none Severity: moderate Maximum Pain Intensity: 8 Current Pain Intensity: 8 Quality: + heaviness (Pressure) Relieved By: + nothing Exacerbated By: + nothing Context: no recent illness, no recent surgery, no recent immobilization, no recent travel, no trauma/injury, no new medications or no history of DVT/PE Associated symptoms: no nausea, no vomiting, no diaphoresis, no dyspnea, no syncope, no palpitations, no fever, no cough or no leg swelling Home Medications Medication Instructions Recorded Confirmed Type escitalopram oxalate 20 mg tablet 20 mg PO HS 07/09/23 07/09/23 History warfarin 5 mg tablet See Rx Instructions .Route .COMPLEX 07/09/23 07/09/23 History Allergies Allergy/AdvReac Type Severity Reaction Status Date / Time No Known Allergies Allergy Verified 07/09/23 17:50 Past Med/Surg History Medical History Mobitz type 2 second degree AV block Anticoagulant long-term use Aortic valve disease s/p AVR (2005) Temporomandibular joint disorder + clicking, no locking Hip pain H/O cardiac pacemaker Implanted 2012, Generator change-out 01/13/23. Surgical History History of hip surgery Left bone/cartilage repair History of appendectomy History of tonsillectomy S/P AVR (aortic valve replacement) 2005 Pacemaker 2012 Family History Grandfather Myocardial infarction Father Diabetes Grandmother (Paternal) Diabetes Social History Smoking Status: Never smoker Second Hand Exposure: Yes (PARENTS SMOKED); Hx Alcohol Use: No Hx Substance Use: No Preferred Language: Norwegian Communication Ability: Effective Water Service Dispatcher Required: No Beliefs That Will Affect Care: None Current Living Situation: Spouse and Family Current Living Situation Comment: SPOUSE, 2 KIDS current occupational status: employed 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 [employer] Other Information That Helps Us Care for You: No Feels Safe at Home: Yes Safety Concerns: Feels Safe At This Time Assistive Devices: Glasses Physical Exam Vital Signs Vital Signs - 24 hr 07/09/23 15:58 07/09/23 16:43 07/09/23 16:43 Temperature 36.2 C L Temperature Source Temporal Artery Scan Pulse Rate 77 Pulse Rate [Apical] 71 Respiratory Rate 20 18 Respiratory Effort / Characteristics Non-Labored Spontaneous Respiratory Depth Normal Blood Pressure 158/92 H Blood Pressure [Left Arm] 129/79 Blood Pressure Mean 114 Blood Pressure Mean [Left Arm] 95 Pulse Oximetry 96 96 96 Oxygen Delivery Method Room Air Room Air Room Air Oxygen Flow Rate 0 Sepsis Recent Fever Within 48 Hours No Sepsis New/Unexplained Change in Mental Status N/A Sepsis Action Taken by Nursing No Action Required 07/09/23 16:43 07/09/23 16:50 Temperature Temperature Source Pulse Rate 70 72 Pulse Rate [Apical] Respiratory Rate 18 Respiratory Effort / Characteristics Respiratory Depth Blood Pressure Blood Pressure [Left Arm] Blood Pressure Mean Blood Pressure Mean [Left Arm] Pulse Oximetry Oxygen Delivery Method Oxygen Flow Rate 0 Sepsis Recent Fever Within 48 Hours Sepsis New/Unexplained Change in Mental Status Sepsis Action Taken by Nursing Physical Exam GENERAL: oriented to person, place, and time. appears well-developed and well- nourished. HENT: Exam performed. - Head: Normocephalic and atraumatic. EYES: Conjunctivae and EOM are normal. Right eye exhibits no discharge. Left eye exhibits no discharge. No scleral icterus. NECK: Normal range of motion. Neck supple. No JVD present. CV: Normal rate, regular rhythm, normal heart sounds and intact distal pulses. There is no peripheral edema. Palpable radial pulses bue. PULM/CHEST: Effort normal and breath sounds normal. No respiratory distress. No stridor. no wheezes. no rales. ABD: The abdomen is soft. There is no tenderness. NEURO: Motor and sensation grossly intact. SKIN: Skin is warm and dry. He is not diaphoretic. PSYCH: normal mood and affect. Behavior is normal. Judgment and thought content normal. Course Course 163: The patient was evaluated in room C6. A complete history and physical exam was performed Cardiac monitoring: An order was placed for continuous cardiac monitoring. The monitor shows a rate of 70 with sinus rhythm interpreted by me 1740: Vital signs stable. Labs and imaging within normal limits. Patient reports his chest pain has resolved status post 1 sublingual nitroglycerin. Patient will be admitted to the [facility] hospitalist team for chest pain rule out ACS. Administered Medications Discontinued Medications Al Hydrox/Mg Hydrox/Simethicone (Aluminum/Magnesium Susp 30 Ml Udc) 30 ml PO NOW STA Stop: 07/09/23 19:38 Last Admin: 07/09/23 19:47 Dose: 30 ml Documented By: HASMUKH Aspirin (Aspirin Chew 324 Mg) 324 mg PO NOW STA Stop: 07/09/23 16:43 Last Admin: 07/09/23 16:46 Dose: 324 mg Documented By: GIANNA Sodium Chloride (Nss) 1,000 mls @ 999 mls/hr IV .Q1H1M ONE Stop: 07/09/23 17:42 Last Infusion: 07/09/23 18:30 Dose: Infused Documented By: Admin: 07/09/23 16:47 Dose: 999 mls/hr Documented By: GIANNA Famotidine (Pepcid 20mg Iv Push) 20 mg in 5 mls @ 2.5 mls/min IV NOW STA Stop: 07/09/23 19:38 Last Admin: 07/09/23 19:47 Dose: 2.5 mls/min Documented By: HASMUKH Nitroglycerin (Nitroglycerin Sl 0.4 Mg/Tab Tab) 0.4 mg SL NOW STA Stop: 07/09/23 16:43 Last Admin: 07/09/23 16:46 Dose: 0.4 mg Documented By: GIANNA Nitroglycerin (Nitroglycerin Sl 0.4 Mg/Tab Tab) 0.4 mg SL NOW STA Stop: 07/09/23 18:23 Last Admin: 07/09/23 18:33 Dose: 0.4 mg Documented By: GIANNA Medical Decision Making Laboratory Data Attestation: I reviewed the patient's lab results. 07/09/23 16:05 07/09/23 16:05 Labs: Lab Results 07/09/23 Range/Units 16:05 WBC 9.86 (4.8-10.8) K/ul RBC 5.60 (4.70-6.10) M/uL Hgb 16.3 (14.0-18.0) g/dl Hct 47.3 (42.0-52.0) % MCV 84.5 (80.0-100.0) fL MCH 29.1 (25.0-34.0) pg MCHC 34.5 (32.0-36.0) g/dL RDW Std Deviation 42.4 (36.4-46.3) fL RDW Coeff of Jarred 13.6 (11.5-14.5) % Plt Count 310 (130-400) K/uL MPV 10.0 (9.4-12.4) fL Immature Gran % (Auto) 0.3 % Neut % (Auto) 59.5 % Lymph % (Auto) 27.7 % [place] % (Auto) 8.0 % Eos % (Auto) 4.0 % Baso % (Auto) 0.5 % Neut # (Auto) 5.87 (1.40-6.50) K/uL Lymph # (Auto) 2.73 (1.20-3.40) K/uL [place] # (Auto) 0.79 H (0.11-0.59) K/uL Eos # (Auto) 0.39 (0.00-0.50) K/uL Baso # (Auto) 0.05 (0.00-0.20) K/uL Immature Gran # (Auto) 0.03 (0.01-0.20) K/uL PT 21.3 H (9.0-12.0) Seconds INR 2.0 H (0.9-1.1) APTT 38 H (21-31) Seconds PTT Ratio 1.3 Sodium 138 (136-145) mmol/L Potassium 3.6 (3.5-5.1) mmol/L Chloride 105 (98-107) mmol/L Carbon Dioxide 26 (21-32) mmol/L Anion Gap 7 (3-11) BUN 10 (6-23) mg/dl Creatinine 0.85 (0.6-1.4) mg/dl Est Cr Clr Drug Dosing 133.2 ml/min Est GFR ( Amer) 118.6 ml/min Est GFR (Non-Af Amer) 102.3 ml/min BUN/Creatinine Ratio 11.8 (10-20) Glucose 95 (70-99(Fasting)) mg/dl Calcium 9.2 (8.6-10.3) mg/dl Total Bilirubin 0.5 (0.2-1.0) mg/dl AST 19 (13-39) U/L ALT 18 (7-52) U/L Alkaline Phosphatase 57 (34-104) U/L Troponin I High Sens 6.5 (0-20) pg/ml Total Protein 7.4 (6.0-8.3) gm/dl Albumin 4.7 (3.4-5.0) gm/dl Globulin 2.7 (2.5-4.0) gm/dl Albumin/Globulin Ratio 1.7 (0.9-2) Imaging Data Chest x-ray: Attestation: I personally reviewed and interpreted this imaging study as follows: My impression: Chest x-ray negative. Airway clear. No pneumothorax. No consolidation. No cardiomegaly or cephalization.. No free air under the diaphragm. No fractures of the skeletal structures. Radiologist's impression: Chest X-Ray 07/09/23 16:01 XR chest 1V not portable CLINICAL HISTORY: Chest pain, nonspecific TECHNIQUE: Single frontal radiograph of the chest was obtained. Comparison: Comparison is made to chest radiograph 01/30/2019 FINDINGS: Median sternotomy wires are unchanged. Implanted pacemaker is seen. The cardiomediastinal silhouette is normal. The lungs are clear. No evidence of pleural effusion or pneumothorax. IMPRESSION: No acute chest disease. ACT 112: Negative or not required by law. Electronically signed by: Fer Atkinson M.D. 07/09/2023 5:19 PM ECG Data Attestation: I personally reviewed and interpreted this ECG as follows: Indication: chest pain Rate (beats per minute): 75 Rhythm: normal sinus Findings: no ST depression, no ST elevation or no prolonged QT MDM Narrative 1630: The patient was evaluated in room C6. A complete history and physical exam was performed Cardiac monitoring: An order was placed for continuous cardiac monitoring. The monitor shows a rate of 70 with sinus rhythm interpreted by me 1740: Vital signs stable. Labs and imaging within normal limits. Patient reports his chest pain has resolved status post 1 sublingual nitroglycerin. Patient will be admitted to the [facility] Hospitalist team for chest pain rule out ACS. Impression & Plan Chest pain Discharge Plan Visit Data Chief Complaint: Chest Pain Stated Complaint: CHEST PRESSURE ED Provider: Reji June Discharge Problem: Chest pain Patient Disposition: Admitted As Inpatient Discharge Instructions Interventions: ED Discharge Assessment Last Done: 07/09/23 19:40 Discharge Problem: Chest pain Qualifiers: Chest pain type: unspecified Qualified Code(s): R07.9 - Chest pain, unspecified
[2023-07-10] MEDS: NITROGLYCERIN SL 0.4 MG/TAB TAB SL PRN (06:27)
[2023-07-10 06:35] LABS: Hematocrit (blood only) 43.6 % (42.0-52.0); Hemoglobin 15.4 g/dl (14.0-18.0); Mean Corpuscular Hemoglobin 29.4 pg (25.0-34.0); Mean Corpuscular Hgb Conc 35.3 g/dL (32.0-36.0); Mean Corpuscular Volume 83.4 fL (80.0-100.0); Mean Platelet Volume 10.1 fL (9.4-12.4); Platelet Count 258 K/uL (130-400); RDW Coefficient of Variation 13.6 % (11.5-14.5); RDW Standard Deviation 41.2 fL (36.4-46.3); Red Blood Count 5.23 M/uL (4.70-6.10); White Blood Count 7.84 K/ul (4.8-10.8)
[2023-07-10 06:57] LABS: BUN Creatinine Ratio 13.6 (10-20); Calcium 8.5 mg/dl (8.6-10.3); Creatinine Clr Calc Pharmacy 171.9 ml/min; Est GFR (African American) 131.6 ml/min; Est GFR (Non-African American) 113.5 ml/min; Potassium 3.8 mmol/L (3.5-5.1)
[2023-07-10 07:24] LABS: INR 2.1 (0.9-1.1); Prothrombin Time 21.6 Seconds (9.0-12.0)
--- NOTE | 2023-07-10 08:09 | Electrocardiogram Report ---
Test Reason : Blood Pressure : / mmHG Vent. Rate : 075 BPM Atrial Rate : 075 BPM P-R Int : 182 ms QRS Dur : 092 ms QT Int : 400 ms P-R-T Axes : -24 033 053 degrees QTc Int : 446 ms Normal sinus rhythm Normal ECG When compared with ECG of 13-JAN-2023 15:00, QRS axis Shifted right Confirmed by Fer Hayden ([id number]) on 07/10/2023 8:08:55 AM Referred By: Confirmed By:Fer Hayden
--- NOTE | 2023-07-10 09:01 | XCELERA ---
[id number]
[2023-07-10] MEDS: OPTIRAY 320 125ml IV ONE (11:07)
--- NOTE | 2023-07-10 12:05 | CT Scan Report ---
CT angio chest dissec wo/w con CLINICAL HISTORY: ro aortic dissection or pe TECHNIQUE: Multidetector row helical CT of the chest was performed before and after injection of IV c ontrast. Coronal, sagittal, and MIP reformations were obtained. Automated dose lowering techniques an d/or adjustment according to patient size were utilized for this exam. CT DOSE: 1820.18 mGy.cm Comparison: Comparison is made to CT abdomen pelvis 11/21/2022 and CTA chest 07/06/2012 FINDINGS: Lungs and pleura: Atelectasis is seen. Heart and pericardium: Aortic valvular calcifications are seen. Vessels: No aortic dissection or intramural hematoma is seen. Mediastinum and sil: Subcentimeter lymph nodes are seen. Chest wall and lower neck: Unremarkable. Abdomen: Unremarkable. Bones: Degenerative changes in the thoracic spine. IMPRESSION: No acute abnormality and in particular no evidence of acute aortic injury. No evidence of pulmonary e mbolus. ACT 112: Negative or not required by law. Electronically signed by: Fer Atkinson M.D. 07/10/2023 12:03 PM
--- NOTE | 2023-07-10 12:35 | Cardiology Consultation ---
Date of Consultation July 10, 2023 Assessment & Plan (1) Chest pain: (2) H/O mechanical aortic valve replacement: (3) H/O cardiac pacemaker: (4) H/O aortic root repair: Plan 47-year-old man with significant past cardiac history (mechanical AVR with aortic root replacement, pacemaker, normal coronaries 2005) presents with abrupt onset severe chest discomfort persisting over the past day. No evidence of myocardial ischemia by ECG or enzymes, given the duration and intensity of pain would expect either or both of these to be substantially abnormal if his symptoms were caused by ischemia. There was some concern about aortic pathology given his history of aortic root graft, chest CT was obtained and showed no evidence of dissection or pulmonary embolism. INR has been therapeutic. Exam does not suggest obvious musculoskeletal etiology and history is not consistent with a viral syndrome associated pleuritis. Although the etiology of his chest pain remains elusive, given absence of evidence for myocardial ischemia, aortic pathology, or pacemaker related issues, okay for discharge with analgesics (avoid nonsteroidals on warfarin, could use acetaminophen with or without narcotic analgesics). Follow-up in our cardiology clinic with James Norman PA-C. History of Present Illness Reason for Consultation: Chest pain Requesting Physician: Traci Montenegro MD Attending Physician: Traci Montenegro MD History of Present Illness 47-year-old man with history of mechanical aortic valve placement 2005 for bicuspid valve/severe AI (normal coronaries at cath), [place]-Gonzalo aortic root replacement ([address] [place] [place]), sick sinus syndrome prompting placement of [employer]tronic [place] XT DR dual-chamber pacemaker (initial device 2012, changed out 2022), who was admitted yesterday (07/09/2023) with left-sided chest pain, benign ECG, negative troponin. 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 He was at work and noted abrupt onset of 8/10 severity left-sided chest discomfort between the left anterior pectoral muscle and left shoulder, no radiation, no change with respiration or position, no associated symptoms (specifically denied nausea, diaphoresis, palpitations, lightheadedness, presyncope, or syncope). He notes that there is no change in the chest pain overnight and that it persists to the present time. Of note, although he states he still has 8/10 discomfort, he appeared very comfortable, was not tachycardic or hypertensive, had no diaphoresis, and did not appear distressed. Evaluation here showed completely unremarkable ECG, negative troponins, and a normal chest x-ray. Aside from his chest pain, no other somatic complaints at the time my evaluation this morning. Allergies Allergy/AdvReac Type Severity Reaction Status Date / Time No Known Allergies Allergy Verified 07/09/23 17:50 Home Medications Medication Instructions Recorded Confirmed Type escitalopram oxalate 20 mg tablet 20 mg PO HS 07/09/23 07/09/23 History warfarin 5 mg tablet See Rx Instructions .Route .COMPLEX 07/09/23 07/09/23 Hist ory Patient History Medical History Mobitz type 2 second degree AV block Anticoagulant long-term use Aortic valve disease s/p AVR (2005) Temporomandibular joint disorder + clicking, no locking Hip pain H/O cardiac pacemaker Implanted 2012, Generator change-out 01/13/23. 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 Afebrile. BP normotensive. Pulse 68 bpm and regular. Respirations 18 unlabored. Skin: no ecchymoses or generalized lesions. HEENT: unremarkable. Neck: JVP at the clavicle at 90 degrees, no carotid bruits. Chest: No bony or muscular tenderness. No change in chest pain using left arm to push against resistance from various positions. No erythema or tenderness around the left subclavian pacemaker site. Lungs: clear. Cardiac: regular rhythm, mechanical aortic closure sound intact, 2/6 right upper sternal border systolic murmur radiating to the apex and faintly to the carotids, no diastolic murmur. Abdomen: benign. Extremities: no edema, pulses intact. Neurologic: normal affect and conversation, nonfocal. Results & Data Vital Signs (Past 12 Hours) Vital Signs Temp Pulse Pulse Resp BP Pulse Ox O2 Del Method 07/10/23 11:51 97.9 F 68 18 115/76 97 Room Air 07/10/23 07:38 97.9 F 64 18 116/74 95 Room Air 07/10/23 07:00 60 07/10/23 03:28 97.5 F L 65 18 109/70 97 Room Air Laboratory Results Troponin negative x 2. Normal electrolytes, BUN 9, creatinine 0.66. Normal CBC. INR 2.1. Diagnostic Findings Initial ECG showed sinus rhythm at 64 bpm and was completely unremarkable. Repeat ECG was similar. Chest x-ray is unremarkable. Chest CT showed no pulmonary embolism, aortic dissection, or other significant pathology. PG Care Time/CCT Total # of Minutes Spent Total Time Spent with Patient: Total time spent is greater than 50% in coordination of care (as documented) at patient's floor/unit and/or counseling patient: Coding Level of Care Code 28345 IN/OBS CONSULT LVL 4,60M Diagnoses Chest pain R07.9 Chest pain type: unspecified H/O mechanical aortic valve replacement Z95.2 H/O cardiac pacemaker Z95.0 H/O aortic root repair Z98.890 (1) Chest pain Chest pain type: unspecified Qualified Code(s): R07.9 - Chest pain, unspecified
[2023-07-10] MEDS ORDERED: DICLOFENAC SOD 1% GEL 100 GM TUBE EXT PRN (13:45)
--- NOTE | 2023-07-10 14:17 | Discharge Summary ---
Date of Service July 10, 2023 Admission HPI Per Admitting Provider 47-year-old male with PMH mechanical aortic valve replacement anticoagulated on Coumadin, history of complete heart block s/p pacemaker, anxiety, and other problems listed below who presents to the ED for evaluation of chest pain. History is obtained from the patient and review of outpatient PCP and cardiology records. Patient reports that around 11:00, while he was at work, he developed a left-sided chest pressure. Patient reports he was not exerting himself at the time. Pain has been fairly constant since that time. No specific causative or alleviating factors. Patient denies associated diaphoresis, shortness of breath, nausea, lightheadedness. Reports feeling fatigued today. No other recent illnesses, fevers, chills. He denies abdominal pain, vomiting, diarrhea. No urinary symptoms. In the ED, patient received 1 sublingual nitroglycerin with some improvement in the pain however is currently rating his pain #8/10. EKG is without acute ST changes and initial HS troponin is negative. Admission Exam Per Admitting Provider Constitutional: WD/WN, vitals as above no acute distress Eyes: PERRL, conjunctivae normal, anicteric sclerae ENMT: external ear and nose normal, oropharynx normal Respiratory: normal respiratory effort, lungs clear to auscultation Cardiovascular: Rate/Rhythm: regular rate and regular rhythm Vessels: normal peripheral pulses Extremities: no edema Gastrointestinal (Abdomen): normal bowel sounds, soft, nontender, no hepatosplenomegaly Musculoskeletal: no cyanosis or clubbing, extremities motor strength 5/5 Skin: no rashes, warm and dry Neurologic: PERRL, EOMI, accommodation nl, no face palsy, no dysarthria Psychiatric: A+Ox3, euthymic affect Principal Diagnosis Chest pain Discharge Exam GENERAL: Alert and oriented x3. NAD, on RA. HEENT: No pallor, no icterus. Pupils equal, round and reactive to light. Oral mucosa moist. NECK: No JVD, no neck masses. HEART: S1 and S2 heard. Regular rate and rhythm. No murmur, no gallop. RESPIRATORY SYSTEM: Normal AP diameter. No accessory muscle use. No wheezing, no crackles. ABDOMEN: Soft, bowel sounds present, nontender, no distention. CENTRAL NERVOUS SYSTEM: No facial droop. Speech is clear. Obeys simple commands. Moves extremities. EXTREMITIES: No edema, no erythema seen. Pacemaker pocket on the left chest healthy with clean incision, no tenderness or erythema noted. No pleuritic chest pain noted on deep breathing or leaning forward. Discharge Data Allergies Allergy/AdvReac Type Severity Reaction Status Date / Time No Known Allergies Allergy Verified 07/09/23 17:50 Consultations 07/09/23 17:38 ED Decision to Admit Stat 07/09/23 20:22 Consult Cardiology Routine Ordered Studies 07/10/23 10:27 CT angio chest dissec wo/w con Urgent Hospital Course (1) Chest pain: Plan 47-year-old male with PMH of mechanical aortic valve replacement/on Coumadin, complete heart block status post pacemaker, anxiety who presented for evaluation of chest pain was seen and examined at bedside along with cardiology. Troponin x 2 negative, EKG without acute ST or T changes. Echo without any regional wall motion abnormality, EF of 55 to 60%. Pacemaker site with clean incision and without erythema or signs of infection. No tenderness there. No mu sculoskeletal tenderness or pleuritic chest pain elicited. Patient reports pain being constant since yesterday morning, no radiation, no aggravating or relieving factors per patient. CTA chest was obtained, negative for aortic dissection and pulmonary embolism. Patient denies any recent viral illness or febrile illness. Denies any shortness of breath or heartburn or increasing chest pain with activity. All imaging findings and plan of care discussed with cardiology, plan to discharge him with cardiology follow-up soon after discharge. He is being discharged to home with following instruction at the point of discharge: Follow-up with your primary care physician within a week time and likely you will need labs CBC/CMP/magnesium/phosphorus. You underwent extensive evaluation for chest pain, no cardiac or aortic reasons for chest pain identified at this point. You can apply Voltaren gel over the painful area for up to 4 times daily as needed or you can apply 4% lidocaine patch as needed as discussed at the bedside. As discussed at the bedside, any change in the nature of the pain or any new character to the pain like radiation to back or jaw or to arms, report to the emergency or to your primary care office immediately. For your chest pain, you can use Tylenol [id number], avoid NSAIDs. Follow-up with your cardiology in a week time upon discharge. Take your medications as prescribed. Please make sure that you are able to get your medications today by calling your pharmacy before you leave the hospital so that your treatment continuity is not broken. Home Health Attestation I certify that this patient is under my care and that I, or a physicians conventions assistant working with me, had a face to-face encounter that meets the home health [id number] encounter requirements with this patient. The encounter with the patient was in whole, or in part, for the following medical condition, which is the primary reason for home health care (list medical condition): I certify that, based on my findings, the following services are medically necessary home health services: My clinical findings support the need for the above services because: Further, I certify that my clinical findings support that this patient is homebound (i.e. absences from home require considerable and taxing effort and are for medical reasons or taoist services or infrequently or of short duration when for other reasons) because: Certification for Home Health Services: Based on the above findings, I certify that this patient is confined to the home and needs intermittent longterm care, physical therapy and/or speech therapy or continues to need occupational therapy. The patient is under my care, and I have initiated the establishment of the plan of care. This patient will be followed by a physician who will periodically review the plan of care. Total Time Total Time Spent Total Time Spent (In Minutes): 45 Discharge Plan Discharge Items Patient Disposition: Home - Self-Care Reason For Visit: CHEST PAIN Discharge Diagnosis: Chest pain Activity: As commented below Activity Comment: Do not lift heavy until further evaluation by cardiology in a week time. Non-emergency contact: Primary Care Provider Call non-emergency contact if: you have any medication questions, your symptoms worsen and your temperature is above 101 Follow-up/Referrals: Shelton Birmingham MD [Primary Care Provider] - Diet: Heart Healthy Addtl Attending Provider Instructions: Follow-up with your primary care physician within a week time and likely you will need labs CBC/CMP/magnesium/phosphorus. You underwent extensive evaluation for chest pain, no cardiac or aortic reasons for chest pain identified at this point. You can apply Voltaren gel over the painful area for up to 4 times daily as needed or you can apply 4% lidocaine patch as needed as discussed at the bedside. As discussed at the bedside, any change in the nature of the pain or any new character to the pain like radiation to back or jaw or to arms, report to the emergency or to your primary care of fice immediately. For your chest pain, you can use Tylenol [id number], avoid NSAIDs. Follow-up with your cardiology in a week time upon discharge. Take your medications as prescribed. Please make sure that you are able to get your medications today by calling your pharmacy before you leave the hospital so that your treatment continuity is not broken. Pending Studies at Discharge: No Stand-Alone Forms: My [facility] [employer], Smoking Cessation Medications and DC Order Prescriptions: New nitroglycerin [Nitrostat] 0.4 mg Tablet, Sublingual 0.4 mg sublingual UD PRN (Reason: chest pain) Qty: 20 0RF Continued warfarin 5 mg tablet See Rx Instructions .ROUTE .COMPLEX Rx Instructions: Take 5mg by mouth on Mondays and 7.5mg by mouth all other days. escitalopram oxalate 20 mg tablet 20 mg PO HS Discharge Orders: Discharge Order (Routine); Ordered 07/10/23 Ordered By: Traci Montenegro Admission Data Admit Date/Time: 07/09/23 17:57 Attending Provider: Traci Montenegro Admit Provider: Ivone Burns Primary Care Provider: Shelton Birmingham Other Providers: Ivone Burns; Fer Hayden
[2023-07-11] MEDS ORDERED: WARFARIN SOD 5 MG TAB PO SCH (16:00)
== END 2023-07-10 15:08 | disposition home or self-care (01) ==
LOC: ED 15:53 → 2S 15:53 → SUATTDRO 17:57 → 2S 19:40